=== PATIENT | male | born 1985 | race Two or more races ===

== ENCOUNTER 2018-07-04 15:35 | Emergency (ER) | payer OTHER ==
[~2018-07-04] VITALS: Ht 172.7 cm; Wt 81.8 kg
[2018-07-04] MEDS ORDERED: CETI10TA59 PO (15:47)
[2018-07-04] MEDS ORDERED: D-ME237L19 PO (15:47)
[2018-07-04] MEDS ORDERED: OXYMETAZOLINE HCL 0.05% 15 ML NASAL SPRAY NASAL ONE (16:45)
[2018-07-04] MEDS ORDERED: IBUPROFEN 400 MG TABLET PO ONE (16:45)
[2018-07-04] MEDS ORDERED: AMOX TR/POT CLAV 875 MG/125 MG TABLET PO ONE (16:45)
[2018-07-04 17:27] VITALS: BP 19/72
== END 2018-07-04 17:38 | disposition home or self-care (01) ==
LOC: EMS 15:37
DX: J32.1 Chronic frontal sinusitis (principal); Z79.899 Other long term (current) drug therapy

== ENCOUNTER 2021-01-22 11:53 | Emergency (ER) | payer OTHER ==
[~2021-01-22] VITALS: Ht 177.8 cm; Wt 81.8 kg
[~2021-01-22 11:53] MED LIST: CETI-450 PO; D-ME237L19 PO
[2021-01-22 11:57] VITALS: BP 101/63
[2021-01-22] MEDS ORDERED: ACETAMINOPHEN 325 MG TABLET PO ONE (13:30)
[2021-01-22] MEDS ORDERED: LIDOCAINE 5% TRANSDERMAL PATCH TD ONE (13:30)
== END 2021-01-22 13:40 | disposition home or self-care (01) ==
LOC: EMS 11:54
DX: M25.511 Pain in right shoulder (principal)
CPT/HCPCS: 99282; 99283

== ENCOUNTER 2021-03-30 16:37 | Emergency (ER) | payer OTHER ==
[~2021-03-30] VITALS: Ht 177.8 cm; Wt 81.8 kg
[~2021-03-30 16:37] MED LIST changes: -D-ME237L19 PO
[2021-03-30] MEDS ORDERED: IBUPROFEN 600 MG TABLET PO ONE (17:30)
[2021-03-30 17:57] LABS: BASOPHILS % (AUTO) 0.5 % (0.0-2.0); EOSINOPHILS % (AUTO) 1.7 % (1.0-6.0); HEMATOCRIT 43.3 % (41-53); HEMOGLOBIN 14.5 g/dL (13.5-17.5); LYMPHOCYTES # (AUTO) 1.9 K/uL (1.0-4.8); LYMPHOCYTES % (AUTO) 32.4 % (22.0-44.0); MEAN CORPUSCULAR HEMOGLOBIN 28.9 pg (26.0-34.0); MEAN CORPUSCULAR HGB CONC 33.5 G/dL (31.0-37.0); MEAN CORPUSCULAR VOLUME 86 fL (80-100); MONOCYTES # (AUTO) 0.4 K/uL (0.1-1.0); MONOCYTES % (AUTO) 7.6 % (2.0-9.0); NEUTROPHILS # (AUTO) 3.4 K/uL (1.8-7.7); NEUTROPHILS % (AUTO) 57.8 % (40.0-70.0); PLATELET COUNT (AUTO) 309 K/uL (150-450); RED BLOOD CELL COUNT(AUTO) 5.02 MIL/uL (4.50-5.90); RED CELL DISTRIBUTION WIDTH 13.1 % (11.5-14.5)
[2021-03-30 18:06] LABS: ANION GAP 5 mmol/L (8-16); CALCIUM, TOTAL 9.8 mg/dL (8.8-10.5); CARBON DIOXIDE 33 mmol/L (22-29); CHLORIDE 104 mmol/L (98-107); CREATININE 0.89 mg/dL (0.60-1.30); GLOMERULAR FILTR. RATE CALC > 60 mL/min (>60); GLUCOSE,RANDOM 106 mg/dL (70-110); POTASSIUM 4.1 mmol/L (3.5-5.1); SODIUM SERUM 142 mmol/L (136-145); UREA NITROGEN, BLOOD 11 mg/dL (7-18)
[2021-03-30 18:31] LABS: ALANINE AMINOTRANSFERASE 47 U/L (12-78); ALBUMIN 4.4 g/dL (3.4-5.0); ALKALINE PHOSPHATASE 81 U/L (46-116); ASPARTATE AMINOTRANSFERASE 28 U/L (15-37); BILIRUBIN,TOTAL 0.8 mg/dL (0.1-1.0); CREATINE KINASE, TOTAL ONLY 111 U/L (39-308); TOTAL PROTEIN, SERUM 7.8 g/dL (6.4-8.2)
[2021-03-30 19:08] VITALS: BP 135/73
== END 2021-03-30 19:14 | disposition home or self-care (01) ==
LOC: EMS 16:41
DX: M77.9 Enthesopathy, unspecified (principal)
CPT/HCPCS: 73552; 80053; 82550; 85025; 99284

== ENCOUNTER 2021-09-28 16:06 | Emergency (ER) | payer OTHER ==
[~2021-09-28] VITALS: Ht 177.8 cm; Wt 83.6 kg
[2021-09-28] MEDS ORDERED: ACETAMINOPHEN 500 MG TABLET PO ONE (16:45)
[2021-09-28 18:05] VITALS: BP 118/65
== END 2021-09-28 19:43 | disposition home or self-care (01) ==
LOC: EMS 16:07
DX: S06.0X9A Concussion with loss of consciousness of unspecified duration, initial encounter (principal); Z87.39 Personal history of other diseases of the musculoskeletal system and connective tissue; Z98.890 Other specified postprocedural states; W19.XXXA Unspecified fall, initial encounter; Y93.66 Activity, soccer; Y92.89 Other specified places as the place of occurrence of the external cause; Y99.8 Other external cause status
CPT/HCPCS: 70450; 99284